=== PATIENT | female | born 1995 | race Caucasian/White ===

== ENCOUNTER 2016-12-25 19:02 | Emergency (ER) | payer OTHER | END 2016-12-25 22:43 | disposition home or self-care (01) | LOC: ER 19:02 | DX: S93.602A Unspecified sprain of left foot, initial encounter (principal); W19.XXXA Unspecified fall, initial encounter; Y92.007 Garden or yard of unspecified non-institutional (private) residence as the place of occurrence of the external cause; Z88.8 Allergy status to other drugs, medicaments and biological substances | CPT/HCPCS: 73610; 73630; 81025; 99070; 99283 ==